=== PATIENT | male | born 1990 | race Two or more races ===

== ENCOUNTER → 2021-01-13 | Outpatient (CLI) | payer OTHER ==
--- NOTE | 2021-01-13 17:42 | KCIC ---
EXAM: XR KNEE _3 VIEWS_LT 01/13/2021 11:46 AM CLINICAL INDICATION: Popping to left knee for 6 weeks COMPARISON: None TECHNIQUE: 3 views of the left knee FINDINGS: There are surgical changes of ACL reconstruction. No acute fracture or malalignment. Joint spaces are maintained. There are small medial compartment osteophytes. Trace joint effusion. No soft tissue abnormality. IMPRESSION: No acute osseous abnormality. Sequela of ACL repair. Mild medial compartment degenerative joint disease. Electronically signed by: Jenny Domínguez MD (01/13/2021 5:40 PM) [id number]
== END ==
LOC: KCIC 11:44
PROVIDERS: ATTEND Family Medicine
DX: M17.12 Unilateral primary osteoarthritis, left knee (principal); Z98.890 Other specified postprocedural states
CPT/HCPCS: 73562

== ENCOUNTER → 2021-03-03 | Outpatient (CLI) | payer OTHER ==
--- NOTE | 2021-03-05 20:02 | PATHOLOGY ---
[facility] Accession Number: [id number] . 01 Material submitted: . thigh - MASS LEFT THIGH, SHORT SUTURE SUPERIOR. Modifiers: left . 01 Clinician provided ICD-10: R22.42 . 02 Diagnosis: Skin and subcutaneous tissue, left thigh mass excision: - Acrochordon (Lipofibroma). (JPM:elmer; 03/05/2021) MBR 03/05/2021 1523 Local . 02 Comment: There is no evidence of malignancy. (JPM:elmer; 03/05/2021) . 02 Electronically signed: . Pedro Luis Mcknight MD, Pathologist NPI- [id number] . 01 Gross description: . The specimen is received in formalin, labeled "Ehsan Lopez, mass left thigh, short-suture superior". Received is a previously oriented 3.0 x 2.3 cm skin ellipse excised to a depth of 1.5 cm. A stitch designates the superior aspect of the specimen and is further designated as 12:00. The epidermal surface appears dome-shaped, olson pink, bosselated, with no discrete lesions. The surgical resection margin is differentially inked as follows: Blue = 9:00 to 12:00 Yellow = 12:00 to 3:00 Black = 3:00 to 6:00, and 6:00 to 9:00 Sectioning reveals an unremarkable, olson-yellow, lobulated fibrofatty cut surface. Pvc Monitor sections are submitted as follows: A1-A2 business services representative cross sections A3 tips JGG/JGG 03/04/2021 1606 Local . 02 Pathologist provided ICD-10: L91.8 . 02 CPT . 639525 Specimen Comment: A courtesy copy of this report has been sent to [phone], [phone]- Specimen Comment: [id number] Specimen Comment: Report sent to / DR HER Specimen Comment: A duplicate report has been generated due to demographic updates. Performed at: 01 [id number] [address] [id number] MD Ander Carrasquillo MD Phone: [phone] Performed at: [facility] [address] [place], [place] [id number] MD Pedro Luis Mcknight MD Phone: [phone]
== END ==
LOC: SPEC 15:59
PROVIDERS: ATTEND Plastic Surgery
DX: L91.8 Other hypertrophic disorders of the skin (principal); R22.42 Localized swelling, mass and lump, left lower limb
CPT/HCPCS: 88304